=== PATIENT | male | born 1945 | race Caucasian/White ===

== ENCOUNTER 2018-07-30 20:57 | Emergency (ER) | payer OTHER, MEDICARE ==
[~2018-07-30] VITALS: Ht 170.2 cm; Wt 91.0 kg
[~2018-07-30 20:57] MED LIST: ADULT ASA81 MG OR; ALAVERT10 MG PO; ALLOPURINOL300 MG PO; ASA LOW DOSE81 MG OR; ASPIRIN ADULT L81 M2; BICITRA30 ML/UDC PO; CHONDROITIN OR; CINNAMON500 MG PO; CRESTOR20 MG PO; EC-NAPROSYN500 MG PO; FA-8800 MCG PO; FISH OIL1000 MG PO; FLEXERIL10 MG PO; FLUNISOLIDE0.025 %; FLUNISOLIDE0.025 % IN; GLUCOSAMINE1500 MG PO; ISOSORB MONO30 MG PO; KETOCONAZOLE2 % EX; LANTUS100 MG/ML SC; LISINOPRIL2.5 MG OR; LISINOPRIL2.5 MG PO; LISINOPRIL5 MG OR; LORTAB5 PO; METOPROLOL25 M1 OR; NEURONTIN300 MG PO; NITROQUICK0.4 MG SL; NOVOLIN R IJ; NOVOLOG FL100 UNIT/M SC; PLAVIX75 MG PO; PROSCAR PO; TERAZOSIN2 MG PO; TRAMADOL HYDROC50 MG PO; TRIAMCINOLON0.11 EX; TYLENOL 500MG TAB PO; ULTRAM50 MG PO; VIT C OR; VITAMIN C1000 MG PO; ZETIA10 MG OR; ZOCOR80 MG OR; [UNRECOGNIZED DRUG - CODE] PO; [UNRECOGNIZED DRUG - OTHER] OR
[2018-07-30] MEDS ORDERED: FISH OIL1000 MG PO (21:28)
[2018-07-30] MEDS ORDERED: CHONDROITIN PO (21:31)
[2018-07-30 21:53] LABS: HEMOGLOBIN 14.7 g/dl (14.0-18.0); IMMATURE GRANULOCYTES 1.6 % (0.0-5.0); MEAN CELL VOLUME 93.9 fL CALC (80.0-100.0); MEAN CORPUSCULAR HGB 30.7 pG CALC (26.0-32.0); MEAN CORPUSCULAR HGB CONC 32.7 g/L CALC (32.0-36.0); NEUT# 5.2 thou/uL (1.82-7.42); RED BLOOD COUNT 4.79 mill/uL (4.70-6.10); RED CELL DISTRI WIDTH 13.6 % (11.5-15.5)
[2018-07-30 22:06] LABS: ALBUMIN 3.8 g/dL (3.2-5.0); ALKALINE PHOSPHATASE 85 u/l (38-126); AMYLASE 57 u/l (30-110); ANION GAP 14 (6-22 (CALC)); BILIRUBIN, TOTAL 0.4 mg/dL (0.0-1.4); BUN 36 mg/dL (8-23); BUN/CREATININE RATIO 34 (12-20 (CALC)); CARBON DIOXIDE 27 mmol/l (22-30); CHLORIDE 101 mmol/l (95-108); CREATININE 1.1 mg/dL (0.7-1.3); GFR > 60 ML/MIN (>=60 (CALC)); GFR FOR AFR.AMER. > 60 ML/MIN (>=60 (CALC)); LIPASE 124 u/l (23-300); POTASSIUM 4.2 mmol/l (3.5-5.1); SGOT/AST 23 u/l (19-48); SODIUM 139 mmol/l (137-146); TOTAL PROTEIN 6.5 g/dL (6.3-8.2)
[2018-07-30 22:17] LABS: MYOGLOBIN 132 ng/mL (0 - 121)
[2018-07-31 02:23] VITALS: BP 139/64
== END 2018-07-31 02:10 | disposition home or self-care (01) | DRG 303 ==
LOC: ED 20:57
PROVIDERS: Family Medicine
DX: I25.118 Atherosclerotic heart disease of native coronary artery with other forms of angina pectoris (principal); E11.9 Type 2 diabetes mellitus without complications; I10 Essential (primary) hypertension; I25.2 Old myocardial infarction; Z95.1 Presence of aortocoronary bypass graft; Z95.5 Presence of coronary angioplasty implant and graft; Z79.4 Long term (current) use of insulin

== ENCOUNTER 2019-06-23 | Emergency (ER) | payer OTHER, MEDICARE ==
[~2019-06-23] MED LIST changes: +CHONDROITIN PO
[2019-06-23 03:08] LABS: HEMATOCRIT 47.3 % (39.0-50.0); HEMOGLOBIN 15.8 g/dl (14.0-18.0); IMMATURE GRANULOCYTES 0.8 % (0.0-5.0); MEAN CELL VOLUME 93.7 fL CALC (80.0-100.0); MEAN CORPUSCULAR HGB 31.3 pG CALC (26.0-32.0); MEAN CORPUSCULAR HGB CONC 33.4 g/dL CAL (32.0-36.0); NEUT# 5.3 thou/uL (1.82-7.42); RED BLOOD COUNT 5.05 mill/uL (4.70-6.10); RED CELL DISTRI WIDTH 13.9 % (11.5-15.5)
[2019-06-23 03:20] LABS: ALBUMIN 4.1 g/dL (3.2-5.0); ANION GAP 12 (6-22 (CALC)); BILIRUBIN, TOTAL 0.5 mg/dL (0.0-1.4); BUN 37 mg/dL (8-23); BUN/CREATININE RATIO 32 (12-20 (CALC)); CARBON DIOXIDE 25 mmol/l (22-30); CHLORIDE 103 mmol/l (95-108); CREATININE 1.2 mg/dL (0.7-1.3); GFR 59 ML/MIN (>=60 (CALC)); GFR FOR AFR.AMER. > 60 ML/MIN (>=60 (CALC)); POTASSIUM 4.5 mmol/l (3.5-5.1); SGOT/AST 32 u/l (19-48); SODIUM 135 mmol/l (137-146); TOTAL PROTEIN 7.1 g/dL (6.3-8.2)
[2019-06-23 04:03] LABS: ALKALINE PHOSPHATASE 107 u/l (38-126)
[2019-06-23] MEDS ORDERED: FLEXERIL PO (05:41)
[2019-06-23] MEDS ORDERED: LORTAB 1010 MG PO (05:41)
== END 2019-06-23 06:06 | disposition home or self-care (01) | DRG 552 ==
PROVIDERS: Emergency Medicine
DX: M47.816 Spondylosis without myelopathy or radiculopathy, lumbar region (principal); I71.4 Abdominal aortic aneurysm, without rupture; N28.1 Cyst of kidney, acquired; I10 Essential (primary) hypertension; I25.10 Atherosclerotic heart disease of native coronary artery without angina pectoris; E11.9 Type 2 diabetes mellitus without complications; Z95.1 Presence of aortocoronary bypass graft; Z95.5 Presence of coronary angioplasty implant and graft; Z79.4 Long term (current) use of insulin
CPT/HCPCS: Q9967

== ENCOUNTER 2020-05-24 | Emergency (ER) | payer MEDICARE ==
[~2020-05-24] MED LIST changes: +FLEXERIL PO; +LORTAB 1010 MG PO
[2020-05-24 11:26] LABS: HEMATOCRIT 46.5 % (39.0-50.0); HEMOGLOBIN 15.2 g/dl (14.0-18.0); IMMATURE GRANULOCYTES 0.8 % (0.0-5.0); MEAN CELL VOLUME 95.5 fL CALC (80.0-100.0); MEAN CORPUSCULAR HGB 31.2 pG CALC (26.0-32.0); MEAN CORPUSCULAR HGB CONC 32.7 g/dL CAL (32.0-36.0); NEUT# 6.41 thou/uL (1.82-7.42); RED BLOOD COUNT 4.87 mill/uL (4.70-6.10)
[2020-05-24 11:42] LABS: ALKALINE PHOSPHATASE 60 u/l (38-126); ANION GAP 13 (6-22 (CALC)); BILIRUBIN, TOTAL 0.7 mg/dL (0.0-1.4); BUN 24 mg/dL (8-23); BUN/CREATININE RATIO 20 (12-20 (CALC)); CARBON DIOXIDE 27 mmol/l (22-30); CHLORIDE 99 mmol/l (95-108); CREATININE 1.2 mg/dL (0.7-1.3); GFR 59 ML/MIN (>=60 (CALC)); GFR FOR AFR.AMER. > 60 ML/MIN (>=60 (CALC)); LIPASE 205 u/l (23-300); POTASSIUM 4.5 mmol/l (3.5-5.1); SGOT/AST 26 u/l (19-48); SODIUM 134 mmol/l (137-146); TOTAL PROTEIN 6.7 g/dL (6.3-8.2)
[2020-05-24] MEDS ORDERED: METFORMIN500 M2 PO (12:31)
[2020-05-24 12:54] LABS: URINE BILIRUBIN - DIPSTICK NEGATIVE (NEGATIVE); URINE BLOOD DIPSTICK NEGATIVE (NEGATIVE); URINE COLOR YELLOW; URINE GLUCOSE - DIPSTICK NEGATIVE (NEGATIVE); URINE KETONE TRACE mg/dL (NEGATIVE); URINE LEUK ESTERASE NEGATIVE (NEGATIVE); URINE PH 5.5 (4.5-8.0); URINE PROTEIN - DIPSTICK >=300 mg/dL (NEG-TRACE); URINE SPECIFIC GRAVITY >=1.030; URINE UROBILINOGEN - DIPSTICK 0.2 E.U./dL (0.2)
[2020-05-24 13:00] LABS: URINE NITRITE - DIPSTICK NEGATIVE (Negative)
[2020-05-24 13:01] LABS: URINE EPITHELIAL CELLS RARE EPI/hpf (0-FEW); URINE MUCUS FEW hpf (NONE-FEW)
== END 2020-05-24 16:20 | disposition home or self-care (01) ==
PROVIDERS: Family Medicine
DX: S39.012A Strain of muscle, fascia and tendon of lower back, initial encounter (principal); I10 Essential (primary) hypertension; E11.9 Type 2 diabetes mellitus without complications; I25.10 Atherosclerotic heart disease of native coronary artery without angina pectoris; E78.5 Hyperlipidemia, unspecified; M10.9 Gout, unspecified; I25.2 Old myocardial infarction; X58.XXXA Exposure to other specified factors, initial encounter; Z87.442 Personal history of urinary calculi; Z79.4 Long term (current) use of insulin

== ENCOUNTER 2021-01-28 11:22 | Emergency (ER) | payer OTHER, MEDICARE ==
[~2021-01-28] VITALS: Ht 170.2 cm; Wt 86.0 kg
[~2021-01-28 11:22] MED LIST changes: +METFORMIN500 M2 PO
[2021-01-28] MEDS ORDERED: HYDROCO/APAP1 TA9 PO (13:47)
[2021-01-28 13:56] VITALS: BP 133/63
== END 2021-01-28 14:05 | disposition home or self-care (01) | DRG 605 ==
LOC: ED 11:22
DX: S40.012A Contusion of left shoulder, initial encounter (principal); S20.212A Contusion of left front wall of thorax, initial encounter; S50.02XA Contusion of left elbow, initial encounter; S90.02XA Contusion of left ankle, initial encounter; S90.512A Abrasion, left ankle, initial encounter; S50.312A Abrasion of left elbow, initial encounter; I10 Essential (primary) hypertension; E11.9 Type 2 diabetes mellitus without complications; I25.10 Atherosclerotic heart disease of native coronary artery without angina pectoris; I25.2 Old myocardial infarction; E78.5 Hyperlipidemia, unspecified; W17.89XA Other fall from one level to another, initial encounter; Y93.K1 Activity, walking an animal; Y92.008 Other place in unspecified non-institutional (private) residence as the place of occurrence of the external cause; Z79.4 Long term (current) use of insulin; Z95.5 Presence of coronary angioplasty implant and graft; Z95.1 Presence of aortocoronary bypass graft

== ENCOUNTER 2021-10-13 20:52 | Emergency (ER) | payer MEDICARE ==
[~2021-10-13] VITALS: Ht 170.2 cm; Wt 83.0 kg
[2021-10-13] VITALS (8 sets, daily range): BP systolic 98–125; BP diastolic 43–64
[~2021-10-13 20:52] MED LIST changes: +HYDROCO/APAP1 TA9 PO
[2021-10-13 22:03] LABS: HEMATOCRIT 43.7 % (39.0-50.0); HEMOGLOBIN 14.1 g/dl (14.0-18.0); IMMATURE GRANULOCYTES 0.5 % (0.0-5.0); MEAN CELL VOLUME 96.7 fL CALC (80.0-100.0); MEAN CORPUSCULAR HGB 31.2 pG CALC (26.0-32.0); MEAN CORPUSCULAR HGB CONC 32.3 g/dL CAL (32.0-36.0); NEUT# 7.94 thou/uL (1.82-7.42); RED BLOOD COUNT 4.52 mill/uL (4.70-6.10); RED CELL DISTRI WIDTH 14.1 % (11.5-15.5)
[2021-10-13 22:14] LABS: CREATININE 1.5 mg/dL (0.7-1.3); POTASSIUM 4.7 mmol/l (3.5-5.1); TOTAL PROTEIN 6.9 g/dL (6.3-8.2)
[2021-10-13 22:17] LABS: BILIRUBIN, TOTAL 0.7 mg/dL (0.0-1.4)
[2021-10-13 22:56] LABS: ACT PARTIAL THROMBO TIME 24.5 SECONDS (20.0-32.5); PROTHROMBIN TIME 10.2 SECONDS (9.0-12.5)
== END 2021-10-13 23:32 | disposition short-term general hospital (02) ==
LOC: ED 20:52
PROVIDERS: Emergency Medicine
DX: I21.4 Non-ST elevation (NSTEMI) myocardial infarction (principal); I25.10 Atherosclerotic heart disease of native coronary artery without angina pectoris; I10 Essential (primary) hypertension; E11.9 Type 2 diabetes mellitus without complications; I25.2 Old myocardial infarction; E78.5 Hyperlipidemia, unspecified; Z95.1 Presence of aortocoronary bypass graft; Z95.828 Presence of other vascular implants and grafts; Z79.84 Long term (current) use of oral hypoglycemic drugs; Z79.4 Long term (current) use of insulin; Z20.822 Contact with and (suspected) exposure to COVID-19
CPT/HCPCS: J1644

== ENCOUNTER 2022-06-05 09:28 | Emergency (ER) | payer OTHER, MEDICARE ==
[~2022-06-05] VITALS: Ht 170.2 cm; Wt 85.0 kg
[2022-06-05 09:43] VITALS: BP 104/57
[2022-06-05] MEDS ORDERED: METOPROL TAR25 MG PO ×2 (09:49→09:52)
[2022-06-05] MEDS ORDERED: RANOLAZINE ER500 MG PO (09:59)
[2022-06-05 10:01] VITALS: BP 90/52
[2022-06-05 10:47] LABS: URINE BILIRUBIN - DIPSTICK NEGATIVE (NEGATIVE); URINE BLOOD DIPSTICK NEGATIVE (NEGATIVE); URINE COLOR YELLOW; URINE GLUCOSE - DIPSTICK NEGATIVE (NEGATIVE); URINE KETONE NEGATIVE (NEGATIVE); URINE LEUK ESTERASE NEGATIVE (NEGATIVE); URINE NITRITE - DIPSTICK NEGATIVE (Negative); URINE PH 6.5 (4.5-8.0); URINE PROTEIN - DIPSTICK 30 mg/dL (NEG-TRACE); URINE SPECIFIC GRAVITY 1.015; URINE UROBILINOGEN - DIPSTICK 0.2 E.U./dL (0.2)
[2022-06-05 10:55] LABS: BASO% 0.4 % (0-3); EOS% 4.4 % (0-8); HEMATOCRIT 44.1 % (39.0-50.0); HEMOGLOBIN 14.4 g/dl (14.0-18.0); IMMATURE GRANULOCYTES 0.7 % (0.0-5.0); LYMPH% 19.8 % (15-41); MEAN CELL VOLUME 98.4 fL CALC (80.0-100.0); MEAN CORPUSCULAR HGB 32.1 pG CALC (26.0-32.0); MEAN CORPUSCULAR HGB CONC 32.7 g/dL CAL (32.0-36.0); MONO% 11.3 % (2-13); NEUT# 6.81 thou/uL (1.82-7.42); NEUT% 63.4 % (42-76); RED BLOOD COUNT 4.48 mill/uL (4.70-6.10); RED CELL DISTRI WIDTH 13.3 % (11.5-15.5)
[2022-06-05 10:56] LABS: URINE RBC 0-2 RBC/hpf (0-5); URINE WBC 0-2 WBC/hpf (0-5)
[2022-06-05 11:17] LABS: ALBUMIN 3.9 g/dL (3.2-5.0); CREATININE 1.4 mg/dL (0.7-1.3); POTASSIUM 4.7 mmol/l (3.5-5.1); TOTAL PROTEIN 6.7 g/dL (6.3-8.2)
[2022-06-05 11:19] LABS: BILIRUBIN, TOTAL 0.7 mg/dL (0.2-1.3)
[2022-06-05 12:14] VITALS: BP 120/63
[2022-06-05 12:31] VITALS: BP 124/66
[2022-06-05 13:00] VITALS: BP 115/63
[2022-06-05] MEDS ORDERED: TRAMADOL HYDROC50 M1 PO (13:01)
[2022-06-05 13:08] VITALS: BP 115/63
== END 2022-06-05 13:36 | disposition home or self-care (01) | DRG 552 ==
LOC: ED 09:28
PROVIDERS: Family Medicine
DX: M54.50 Low back pain, unspecified (principal); I71.40 Abdominal aortic aneurysm, without rupture, unspecified; I10 Essential (primary) hypertension; E11.9 Type 2 diabetes mellitus without complications; I25.10 Atherosclerotic heart disease of native coronary artery without angina pectoris; I25.2 Old myocardial infarction; N40.0 Benign prostatic hyperplasia without lower urinary tract symptoms; Z85.46 Personal history of malignant neoplasm of prostate; Z87.442 Personal history of urinary calculi; Z95.1 Presence of aortocoronary bypass graft; Z95.5 Presence of coronary angioplasty implant and graft; E89.0 Postprocedural hypothyroidism; Z79.84 Long term (current) use of oral hypoglycemic drugs; Z79.4 Long term (current) use of insulin
CPT/HCPCS: Q9967

== ENCOUNTER 2023-03-12 14:29 | Emergency (ER) | payer OTHER, MEDICARE ==
[2023-03-12] VITALS (20 sets, daily range): BP systolic 84–135; BP diastolic 50–77
[~2023-03-12] VITALS: Ht 170.2 cm; Wt 82.0 kg
[~2023-03-12 14:29] MED LIST changes: +METOPROL TAR25 MG PO; +RANOLAZINE ER500 MG PO; +TRAMADOL HYDROC50 M1 PO
[2023-03-12 15:24] LABS: BASO% 0.1 % (0-3); HEMATOCRIT 52.4 % (39.0-50.0); IMMATURE GRANULOCYTES 0.6 % (0.0-5.0); LYMPH% 6.6 % (15-41); MEAN CELL VOLUME 97.9 fL CALC (80.0-100.0); MEAN CORPUSCULAR HGB 32.1 pG CALC (26.0-32.0); MEAN CORPUSCULAR HGB CONC 32.8 g/dL CAL (32.0-36.0); MONO% 5.3 % (2-13); NEUT# 12.33 thou/uL (1.82-7.42); NEUT% 85.4 % (42-76); RED BLOOD COUNT 5.35 mill/uL (4.70-6.10); RED CELL DISTRI WIDTH 13.4 % (11.5-15.5)
[2023-03-12 15:39] LABS: HEMOGLOBIN 17.2 g/dl (14.0-18.0)
[2023-03-12 15:40] LABS: ALBUMIN 4.4 g/dL (3.2-5.0); BILIRUBIN, TOTAL 0.8 mg/dL (0.2-1.3); CREATININE 1.5 mg/dL (0.7-1.3); POTASSIUM 5.1 mmol/l (3.5-5.1); TOTAL PROTEIN 7.6 g/dL (6.3-8.2)
[2023-03-12 17:58] LABS: URINE BILIRUBIN - DIPSTICK Negative (NEGATIVE); URINE BLOOD DIPSTICK Negative (NEGATIVE); URINE GLUCOSE - DIPSTICK >=1000 mg/dL (NEGATIVE); URINE KETONE Trace mg/dL (NEGATIVE); URINE LEUK ESTERASE Negative (NEGATIVE); URINE NITRITE - DIPSTICK Negative (Negative); URINE PROTEIN - DIPSTICK 30 mg/dL (NEG-TRACE); URINE SPECIFIC GRAVITY 1.015; URINE UROBILINOGEN - DIPSTICK 0.2 E.U./dL (0.2)
[2023-03-12 18:01] LABS: URINE COLOR Yellow; URINE RBC 0-2 RBC/hpf (0-5); URINE WBC 0-2 WBC/hpf (0-5)
[2023-03-12] MEDS ORDERED: ONDANSETRON4 MG PO (19:39)
== END 2023-03-12 20:08 | disposition home or self-care (01) | DRG 392 ==
LOC: ED 14:29
PROVIDERS: Nurse Practitioner
DX: R11.2 Nausea with vomiting, unspecified (principal); R19.7 Diarrhea, unspecified; I12.9 Hypertensive chronic kidney disease with stage 1 through stage 4 chronic kidney disease, or unspecified chronic kidney disease; E11.22 Type 2 diabetes mellitus with diabetic chronic kidney disease; N18.30 Chronic kidney disease, stage 3 unspecified; I25.10 Atherosclerotic heart disease of native coronary artery without angina pectoris; I71.40 Abdominal aortic aneurysm, without rupture, unspecified; I25.2 Old myocardial infarction; E78.5 Hyperlipidemia, unspecified; Z95.1 Presence of aortocoronary bypass graft; Z95.5 Presence of coronary angioplasty implant and graft; Z79.4 Long term (current) use of insulin; Z79.84 Long term (current) use of oral hypoglycemic drugs

== ENCOUNTER 2024-03-23 08:54 | Emergency (ER) | payer OTHER, MEDICARE ==
[~2024-03-23] VITALS: Ht 170.2 cm; Wt 84.3 kg
[2024-03-23] VITALS (7 sets, daily range): BP systolic 101–138; BP diastolic 57–74
[~2024-03-23 08:54] MED LIST changes: +ONDANSETRON4 MG PO
[2024-03-23] MEDS ORDERED: LORTAB 1010 MG PO (10:19)
[2024-03-23] MEDS ORDERED: HYDROcodone/Acetaminophen 1 COMBO TAB PO ONE (10:35)
== END 2024-03-23 10:47 | disposition home or self-care (01) | DRG 185 ==
LOC: ED 08:54
DX: S22.41XA Multiple fractures of ribs, right side, initial encounter for closed fracture (principal); E11.9 Type 2 diabetes mellitus without complications; I10 Essential (primary) hypertension; I25.10 Atherosclerotic heart disease of native coronary artery without angina pectoris; I25.2 Old myocardial infarction; E78.5 Hyperlipidemia, unspecified; W01.0XXA Fall on same level from slipping, tripping and stumbling without subsequent striking against object, initial encounter; Y92.009 Unspecified place in unspecified non-institutional (private) residence as the place of occurrence of the external cause; Z95.1 Presence of aortocoronary bypass graft; Z95.5 Presence of coronary angioplasty implant and graft; Z79.84 Long term (current) use of oral hypoglycemic drugs; Z79.4 Long term (current) use of insulin

== ENCOUNTER 2024-05-03 20:14 | Emergency (ER) | payer OTHER, MEDICARE ==
[~2024-05-03] VITALS: Ht 170.2 cm; Wt 83.0 kg
[2024-05-03] MEDS ORDERED: DECADRON4 MG PO (22:35)
[2024-05-03 22:43] VITALS: BP 113/57
== END 2024-05-03 22:45 | disposition home or self-care (01) | DRG 74 ==
LOC: ED 20:14
DX: G57.12 Meralgia paresthetica, left lower limb (principal)
CPT/HCPCS: J1100